=== PATIENT | female | born 1945 | race Caucasian/White ===

== ENCOUNTER 2021-04-11 16:46 | Outpatient (REF) | payer MEDICARE, SELFPAY ==
[2021-04-11 18:20] LABS: Anion Gap 14 (12-20); Blood Urea Nitrogen 13 mg/dL (9-16); Calcium 9.7 mg/dL (8.4-10.2); Carbon Dioxide 28 mmol/L (22-29); Chloride 101 mmol/L (96-108); Estimated Glomerular Filt Rate > 60; Glucose Random 96 mg/dL (60-115); Potassium 4.7 mmol/L (3.3-5.1); Sodium 138 mmol/L (135-145)
[2021-04-11 18:44] LABS: T4 Thyroxine 5.1 ug/dL (4.5-12.0); Thyroid Stimulating Hormone 0.79 uIU/mL (0.32-4.0)
[2021-04-11 18:56] LABS: Folate > 20.0 ng/mL (> or = 4.0); Vitamin B12 542 pg/mL (200-900)
== END 2021-04-11 16:47 | disposition home or self-care (01) ==
LOC: HO.LAB 16:46
PROVIDERS: Visit Provider Psychiatry & Neurology Neurology
DX: G31.84 Mild cognitive impairment of uncertain or unknown etiology (principal)
CPT/HCPCS: 36415; 80048; 82607; 82746; 84436; 84443